=== PATIENT | male | born 1975 | race Caucasian/White ===

== ENCOUNTER 2020-12-25 12:42 | Emergency (ER) | payer OTHER ==
[~2020-12-25] VITALS: Ht 172.7 cm; Wt 85.6 kg
--- NOTE | 2020-12-25 13:32 | PHYS DOC ---
Past History Past Medical History: COPD, Seizure, Schizophrenia, Other Past Surgical History: No Surgical History Alcohol Use: None Drug Use: None Adult General Chief Complaint Chief Complaint: MEDICATION REFILL HPI HPI Patient is a 45-year-old male with multiple psychiatric diagnoses who presents to the emergency department with need for medication refill of his psychiatric medications. Patient states he was released from [facility] yesterday and is staying in a jail house and was coming into the emergency department to look for resources and/or medication refills to help with his psychiatric medications. States currently he is not SI, HI, hallucinating and is doing well but wants to get on top of it before he runs out of medications or starts having issues. Denies any recent travel, illnesses, fevers, chest pain, shortness of breath, abdominal pain, nausea, vomiting. Denies any headaches, changes in vision. States he is otherwise eating and drinking normally. Denies any alcohol or drug use. Review of Systems Review of Systems Review of systems otherwise unremarkable except noted in HPI. Allergies Allergies Allergies Coded Allergies Type Severity Reaction Last Updated Verified Penicillins Allergy Unknown rash 12/10/14 No Physical Exam Physical Exam Constitutional: Well developed, well nourished, no acute distress, non-toxic appearance. [] HENT: Normocephalic, atraumatic, Eyes: PERRLA, EOMI, conjunctiva normal, no discharge. [] Neck: Normal range of motion, Cardiovascular:Heart rate regular rhythm, no murmur [] Lungs & Thorax: No respiratory distress Abdomen: soft, no tenderness, no masses, no pulsatile masses. [] Skin: Warm, dry, no erythema, no rash. [] Back: No tenderness, Extremities: No tenderness, ROM intact, no edema. [] Neurologic: Alert and oriented X 3, able to ambulate without issue, no focal deficits noted. [] Psychologic: Affect normal, judgement normal, mood normal. No SI, HI, hallucinations [] EKG EKG [] Radiology/Procedures Radiology/Procedures [] Heart Score C/O Chest Pain: No Risk Factors: Risk Factors: DM, Current or recent (<one month) smoker, HTN, HLP, family history of CAD, obesity. Risk Scores: Risk Factors: DM, Current or recent (<one month) smoker, HTN, HLP, family history of CAD, obesity. Course & Med Decision Making Course & Med Decision Making Patient is a 45-year-old male who presents to the emergency department requesting medical resources for psychiatric and general health practitioners who could prescribe him his medications and handle his medical issues/diagnoses Vital signs not concerning. Physical exam noted above. Patient alert, oriented, cooperative and pleasant in no acute distress. Discussed all of patient's diagnosis with him. Gave patient resources for the [facility], [facility], transportation, and other local free clinics, dentists, psychiatric and general health practitioners. Patient very grateful, verbalized understanding and asked to be discharged quickly so he could [facility] to [facility]. Gave strict return precautions to the ED. Anil granger grateful, verbalized understanding and agreed with plan of discharge. [] Dragon Disclaimer Dragon Disclaimer This electronic medical record was generated, in whole or in part, using a voice recognition dictation system. Departure Departure: Impression: Primary Impression: Medication refill Disposition: HOME / SELF CARE / HOMELESS Condition: GOOD Referrals: PCP,NO (PCP) Patient Instructions: Medication Refill, Emergency Department Additional Instructions: Thank you for coming into the emergency department today. As discussed, your psychiatric medications would be better managed given the complexity by a psychiatric facility or a family medicine/internal medicine practitioner who can visit with you, prescribed medications and follow your progress in order to make adjustments as needed. You were given information on local psychiatric, primary care, and free clinic establishment with all of their numbers and advi sed to call soon as you leave the emergency department. Please come back to the emergency department immediately with new or concerning symptoms as discussed. NOBLE KELLEY MD December 25, 2020 13:32
[2020-12-25 13:35] VITALS: BP 128/78
== END 2020-12-25 13:35 | disposition home or self-care (01) ==
LOC: ER 12:42
DX: J44.9 Chronic obstructive pulmonary disease, unspecified (principal); R56.9 Unspecified convulsions; F20.9 Schizophrenia, unspecified; Z76.0 Encounter for issue of repeat prescription; Z88.0 Allergy status to penicillin
CPT/HCPCS: 99281